=== PATIENT | female | born 1995 | race Caucasian/White ===

== ENCOUNTER 2025-07-08 08:37 | Emergency (ER) | payer OTHER, SELFPAY ==
--- NOTE | 2025-07-08 08:38 | ED_ITS ---
HPI - Female Genitourinary General Chief complaint: Urogenital-Female Stated complaint: Urinary Irritation Time Seen by Provider: 07/08/25 08:37 Source: patient Mode of arrival: ambulatory Limitations: no limitations History of Present Illness HPI Narrative: Laure is a 30-year-old female patient presenting to the clinic today with complaints of a possible UTI. She reports she is having pain in her urethra/bladder that started this morning. She denies any back pain or abdominal pain. No fevers, chills, body aches. Last menstrual period was 2 weeks ago. Denies any abnormal vaginal discharge. No concern for at this time. Related Data Allergies Allergy/AdvReac Type Severity Reaction Status Date / Time No Known Allergies Allergy Verified 07/08/25 08:53 Review of Systems Review of Systems: Pertinent positives per HPI. Patient denies any fever, chills, rash, headache, visual changes, dizziness, cough, runny nose, sore throat, shortness of breath, chest pain, palpitations, nausea, vomiting, diarrhea, constipation, abdominal pain. PMFSH Comments At the time of my signature, I reviewed and agree with the nursing past medical, surgical, social, and family history. There is no relevant family history pertinent to the patient complaint. Exam Narrative: General: Well-developed, obese, in no apparent distress. Head: Normocephalic, atraumatic. Cardio: Regular rate and rhythm, s1 and s2 normal, no murmur appreciated. Resp: Clear to auscultation bilaterally, no rhonchi, rales, wheezing or rubs. Abdomen: Soft, pliable, bowel sounds present in all quadrants, non-tender to palpation, no organomegly, no CVAT tenderness. Course Course Emergency Course: Portions of this record may have been created with voice recognition software. Level of Care: Express Care Visit Vital Signs Vital signs: Vital Signs Temperature 36.5 C 07/08/25 08:48 Pulse Rate 84 07/08/25 08:48 Respiratory Rate 18 07/08/25 08:48 Blood Pressure 123/79 07/08/25 08:48 Pulse Oximetry 99 07/08/25 08:48 Oxygen Delivery Room Air 07/08/25 08:48 Temperature 36.5 C 07/08/25 08:48 Pulse Rate 84 07/08/25 08:48 Respiratory Rate 18 07/08/25 08:48 Blood Pressure 123/79 07/08/25 08:48 Pulse Oximetry 99 07/08/25 08:48 Oxygen Delivery Room Air 07/08/25 08:48 Vital signs reviewed MDM - Female Genitourinary MDM Narrative Medical decision making narrative: At the time of visit patient is resting comfortably on the exam table. Patient appears to be nontoxic. complaints of a possible UTI. She reports she is having pain in her urethra/bladder that started this morning. She denies any back pain or abdominal pain. No fevers, chills, body aches. Last menstrual period was 2 weeks ago. Denies any abnormal vaginal discharge. No concern for at this time. On exam patient has soft pliable abdomen, no tenderness to palpation over the suprapubic area, no CVAT tenderness, bowel sounds present all 4 quadrants. Urine dip was ordered. Labs: Urine dip was performed urine shows 2+ blood and trace of ketone. Patient passed a kidney stone in the clinic when giving urine sample Plan: I suspect patient passed a kidney stone which likely was causing her bladder pain/urethral pain. Patient reports she still having some discomfort. No sign of UTI. Will send in prescription for some Pyridium. Supportive measures were discussed with the patient and they voiced understanding discharge instructions and agrees to treatment plan. Return precautions reviewed Differential Diagnosis Differential diagnosis: Likely urinary tract infection, cystitis and other (Kidney stone, bladder stone, urethritis) Lab Data Labs: Lab Results 07/08/25 Range/Units 08:55 POC Urine Color Yellow POC Urine Clarity Cloudy POC Urine pH 6.0 POC Ur Specif [place] 1.025 POC Urine Protein Negative (Negative) POC Ur Glucose (UA) Negative (Negative) POC Urine Ketones Trace (Negative) POC Urine Blood 2+ (Negative) POC Urine Nitrite Negative (Negative) POC Urine Bilirubin Negative (Negative) POC Urine Urobilinogen 0.2 POC U Leukocyte Esteras Negative (Negative) Discharge Plan Discharge Clinical Impression: Bladder pain, Kidney stone, Pain in urethra Patient Disposition: Home Condition: Stable Instructions: Antibiotic Form, Kidney Stones (ED) Additional Instructions: No sign of urinary tract infection in the clinic today You did pass a small kidney stone-this may likely be the cause of your discomfort Take Pyridium as needed for bladder pain Increase fluids and stay well hydrated Wipe front to back. May use wet wipes. Avoid tub baths If sexually active- pee before and after intercourse. Wear cotton panties Avoid tight clothing up against the genitals Follow up with your PCP in 1 week if symptoms persist. Patient Language: [place] Prescriptions: New phenazopyridine [Pyridium] 200 mg tablet 200 mg PO TID PRN (Reason: pain) Qty: 6 0RF Follow-up/Referrals: UNKNOWN,DOCTOR [Non-Staff] Time of Disposition: 09:07 Quality NIHSS Nursing Documentation ED NIHSS nursing documentation: reviewed/agree
[2025-07-08 08:48] VITALS: BP 123/79; PULSE 84; RESP 18; TEMP 36.5; O2SAT 99
[2025-07-08 08:58] LABS: EDUAAPPEAR Cloudy; EDUABILI Negative (Negative); EDUABLOOD 2+ (Negative); EDUACOLOR1 Yellow; EDUAGLUCOSE Negative (Negative); EDUAKETONE Trace (Negative); EDUALEUKO Negative (Negative); EDUANITRATE Negative (Negative); EDUAPH 6.0; EDUAPROTEIN Negative (Negative); EDUASPGRAVITY 1.025; EDUAUROBILI 0.2
== END 2025-07-08 09:11 | disposition home or self-care (01) ==
PROVIDERS: Emergency Provider Nurse Practitioner Family
DX: R39.89 Other symptoms and signs involving the genitourinary system (principal); N20.0 Calculus of kidney; N36.9 Urethral disorder, unspecified
CPT/HCPCS: 81003; 99203; G0463